=== PATIENT | female | born 1950 | race Caucasian/White ===

== ENCOUNTER → 2016-09-03 | Outpatient (CLI) | payer MEDICARE, OTHER ==
[~2016-09-03] VITALS: Ht 167.6 cm; Wt 98.8 kg
[~2016-09-03] MED LIST: AMMO225L14 TP; LEVO100T4 PO; NAPR250T2 PO; OXYC15TA2 PO; TEMO15O TP; TIZA2TAB4 PO
[2016-09-03 13:58] VITALS: BP 134/77
== END | disposition home or self-care (01) ==
LOC: HBOWC 13:53
PROVIDERS: ATTEND Emergency Medicine
DX: S51.001D Unspecified open wound of right elbow, subsequent encounter (principal); X58.XXXD Exposure to other specified factors, subsequent encounter

== ENCOUNTER → 2016-09-17 | Outpatient (CLI) | payer MEDICARE, OTHER ==
[2016-09-17 14:00] VITALS: BP 109/65
== END | disposition home or self-care (01) ==
LOC: HBOWC 13:25
PROVIDERS: ATTEND Emergency Medicine
DX: S51.001D Unspecified open wound of right elbow, subsequent encounter (principal); X58.XXXD Exposure to other specified factors, subsequent encounter

== ENCOUNTER → 2016-10-08 | Outpatient (CLI) | payer MEDICARE, OTHER ==
[2016-10-08 14:04] VITALS: BP 131/71
== END | disposition home or self-care (01) ==
LOC: HBOWC 13:50
PROVIDERS: ATTEND Emergency Medicine
DX: S51.001D Unspecified open wound of right elbow, subsequent encounter (principal); X58.XXXD Exposure to other specified factors, subsequent encounter